=== PATIENT | male | born 1990 | race African-American/Black ===

== ENCOUNTER 2017-02-25 23:41 | Emergency (ER) | payer MEDICAID, SELFPAY ==
[~2017-02-25 23:41] MED LIST: Lidocaine 1% 20 ML MDV ONE
[2017-02-25 23:56] LABS: Bilirubin Negative (Negative); Blood, Urine Trace (Negative); Glucose, Urine (Dipstick) Negative (Negative); Leukocyte Large (Negative); Nitrite Negative (Negative); Protein, Urine (Dipstick) Trace mg/dL (Neg-Trace); Specific Gravity, Urine 1.025 (1.005-1.030)
[2017-02-25 23:57] LABS: Clarity Cloudy (Clear)
[2017-02-25] MEDS ORDERED: cefTRIAXone\\ROCEPHIN 250 MG VIAL ONE (23:57)
[2017-02-25] MEDS ORDERED: Doxycycline 100 MG CAP ONE (23:57)
[2017-02-26 00:05] LABS: Bacteria/HPF Rare-Few HPF (None Seen); RBC/HPF 0-3 HPF (0-3); Squamous Epithelial 0-3 HPF (0-3)
[2017-02-28 16:59] LABS: Chlamydia by PCR DETECTED (NotDetected); GC by PCR DETECTED (NotDetected)
== END 2017-02-26 00:10 | disposition home or self-care (01) ==
LOC: MADERS 23:41
DX: N34.2 Other urethritis (principal)
CPT/HCPCS: 81003; 81015; 87491; 87591; J0696; J2001

== ENCOUNTER 2018-05-25 15:13 | Emergency (ER) | payer SELFPAY ==
[2018-05-25] MEDS ORDERED: Lidocaine 1% w/Epinephrine 1:100K 30 ML VIAL ONE (15:21)
[2018-05-25] MEDS ORDERED: Lidocaine 2% w/Epinephrine 1:200K 20 ML VIAL ONE (15:23)
--- NOTE | 2018-05-25 15:51 | RAD ---
RIGHT FOREARM TWO VIEWS: 05/25/18 HISTORY: Injury, laceration. FINDINGS/IMPRESSION: The right radius and ulna are intact. A soft tissue defect is seen in the dorsal aspect of the mid fo rearm. There is two tiny radiopaque densities suspicious for radiopaque foreign bodies. POS: [facility]
[2018-05-25] MEDS ORDERED: Sodium Chloride Irrig Solution 250 ML BOT ONE (16:15)
[2018-05-25] MEDS ORDERED: Bacitracin Zinc 1 Packet ONE (16:16)
[2018-05-25] MEDS ORDERED: Cephalexin 250 MG CAP ONE (16:46)
[2018-05-25] MEDS ORDERED: Ibuprofen 800 MG TAB ONE (16:46)
[2018-05-25] MEDS ORDERED: HYDROcodone/Acetaminophen 5/325 mg Tablet ONE (16:46)
== END 2018-05-25 16:55 | disposition home or self-care (01) ==
LOC: MADERS 15:13
DX: S51.811A Laceration without foreign body of right forearm, initial encounter (principal); W25.XXXA Contact with sharp glass, initial encounter; Y92.009 Unspecified place in unspecified non-institutional (private) residence as the place of occurrence of the external cause
CPT/HCPCS: 12002; J2001

== ENCOUNTER 2018-06-06 11:11 | Emergency (ER) | payer SELFPAY | END 2018-06-06 12:05 | disposition home or self-care (01) | LOC: MADERS 11:11 | DX: S51.811D Laceration without foreign body of right forearm, subsequent encounter (principal) ==

== ENCOUNTER 2018-06-17 14:23 | Emergency (ER) | payer SELFPAY ==
[~2018-06-17 14:23] MED LIST changes: -Lidocaine 1% 20 ML MDV ONE; +Sodium Chloride 0.9% 1,000 ML BAG ONE
[2018-06-17] MEDS ORDERED: Ondansetron HCl/PF 4 MG/2 ML Vial ONE (14:45)
[2018-06-17 15:18] LABS: Eosinophils 4 % (0-10); Lymphocytes 51 % (21-51); MDiff Complete? YES; Mean Corpuscular HGB CONC 32.1 g/dL (32.0-36.0); Mean Corpuscular Hemoglobin 26.7 pg (27.0-31.0); Mean Corpuscular Volume 83.3 fL (78.0-98.0); Mean Platelet Volume 6.8 fL (7.4-10.4); Monocytes 13 % (0-10); Neutrophil 32 % (42-75); PLT Morphology Comment Appears Adequate; Platelet Count 222 thou/uL (130-400); RBC Distribution Width 11.8 % (11.5-14.5); White Blood Cell (WBC) Count 4.1 thou/uL (4.8-10.8)
[2018-06-17 15:21] LABS: ALT (SGPT) 10 U/L (8-55); AST (SGOT) 14 U/L (5-34); Alkaline Phosphatase 73 U/L (40-150); Anion Gap 10 mmol/L (10-20); BUN (Urea Nitrogen) 16 mg/dL (8.9-20.6); Bilirubin, Total 0.8 mg/dL (0.2-1.2); CK (CPK) 280 U/L (30-200); Calc. Creatinine Clearance 0 mL/min (70-130); Calcium 9.1 mg/dL (7.8-10.44); Carbon Dioxide 25 mmol/L (22-29); Chloride 107 mmol/L (98-107); Estimated GFR-MDRD Greater than 90; Globulin 2.8 g/dL (2.4-3.5); Glucose 120 mg/dL (70-105); Potassium 3.3 mmol/L (3.5-5.1); Protein, Total 6.8 g/dL (6.0-8.3); Sodium 139 mmol/L (136-145)
[2018-06-17] MEDS ORDERED: Potassium Chloride 20 MEQ TAB ONE (15:33)
[2018-06-17] MEDS ORDERED: Potassium Chloride 10 MEQ TAB ONE ×2 (15:34)
== END 2018-06-17 15:53 | disposition home or self-care (01) ==
LOC: MADERS 14:23
DX: E86.0 Dehydration (principal)
CPT/HCPCS: 80053; 82550; 85025; 96361; 96374; J2405; J7050

== ENCOUNTER 2018-09-05 20:46 | Emergency (ER) | payer BC, SELFPAY | END 2018-09-05 21:28 | disposition home or self-care (01) | LOC: MADERS 20:46 | DX: A08.4 Viral intestinal infection, unspecified (principal) | CPT/HCPCS: 99283 ==

== ENCOUNTER 2018-10-17 20:19 | Emergency (ER) | payer SELFPAY | END 2018-10-17 21:15 | disposition left against medical advice (07) | LOC: MADERS 20:19 | DX: Z53.21 Procedure and treatment not carried out due to patient leaving prior to being seen by health care provider (principal) ==

== ENCOUNTER 2018-10-18 12:48 | Emergency (ER) | payer SELFPAY ==
[2018-10-18] MEDS ORDERED: Ondansetron ODT 4 MG TAB ONE (13:05)
[2018-10-18] MEDS ORDERED: Diphenoxylate HCl/Atropine Tablet ONE (13:05)
== END 2018-10-18 13:17 | disposition home or self-care (01) ==
LOC: MADERS 12:48
DX: R11.2 Nausea with vomiting, unspecified (principal); R19.7 Diarrhea, unspecified
CPT/HCPCS: 99283; Q0162

== ENCOUNTER 2018-11-17 07:38 | Emergency (ER) | payer SELFPAY | END 2018-11-17 08:15 | disposition home or self-care (01) | LOC: MADERS 07:38 | DX: L03.213 Periorbital cellulitis (principal) | CPT/HCPCS: 99283 ==

== ENCOUNTER 2018-11-30 13:27 | Emergency (ER) | payer SELFPAY | END 2018-11-30 13:55 | disposition home or self-care (01) | LOC: MADERS 13:27 | DX: K52.9 Noninfective gastroenteritis and colitis, unspecified (principal) | CPT/HCPCS: 99283 ==

== ENCOUNTER 2018-12-14 20:36 | Emergency (ER) | payer SELFPAY | END 2018-12-14 21:05 | disposition home or self-care (01) | LOC: MADERS 20:36 | DX: R11.2 Nausea with vomiting, unspecified (principal) | CPT/HCPCS: 99283 ==

== ENCOUNTER 2019-08-21 12:56 | Emergency (ER) | payer SELFPAY ==
[2019-08-21] MEDS ORDERED: Ondansetron ODT 4 MG TAB ONE (13:39)
== END 2019-08-21 13:41 | disposition home or self-care (01) ==
LOC: MADERS 12:56
DX: A08.4 Viral intestinal infection, unspecified (principal)
CPT/HCPCS: 99283; Q0162